=== PATIENT | female | born 1940 | race Caucasian/White ===

== ENCOUNTER 2021-07-03 11:39 | Emergency (ER) | payer MEDICARE ==
[~2021-07-03] VITALS: Ht 165.1 cm; Wt 71.0 kg
[2021-07-03] MEDS ORDERED: ATORVASTATIN CA40 MG PO (12:57)
[2021-07-03] MEDS ORDERED: SERTRALINE50 MG PO (12:58)
[2021-07-03] MEDS ORDERED: LEVOTHYROXIN125 MCG PO (12:58)
[2021-07-03] MEDS ORDERED: NORVASC5 M1 PO (12:59)
[2021-07-03] MEDS ORDERED: ISOSORB MONO30 MG PO (13:01)
[2021-07-03] MEDS ORDERED: METOPROL TAR25 MG PO (13:01)
[2021-07-03 13:20] LABS: HEMATOCRIT 41.1 % (37.0-47.0); HEMOGLOBIN 13.3 g/dl (12.0-16.0); IMMATURE GRANULOCYTES 0.4 % (0.0-5.0); MEAN CELL VOLUME 94.7 fL CALC (80.0-100.0); MEAN CORPUSCULAR HGB 30.6 pG CALC (26.0-32.0); MEAN CORPUSCULAR HGB CONC 32.4 g/dL CAL (32.0-36.0); NEUT# 4.57 thou/uL (2.00-7.15); RED BLOOD COUNT 4.34 mill/uL (4.20-5.60); RED CELL DISTRI WIDTH 12.6 % (11.5-15.5)
[2021-07-03 13:39] LABS: ALBUMIN 3.8 g/dL (3.2-5.0); ALKALINE PHOSPHATASE 187 u/l (38-126); ANION GAP 11 (6-22 (CALC)); BILIRUBIN, TOTAL 0.6 mg/dL (0.0-1.4); BUN 14 mg/dL (8-23); BUN/CREATININE RATIO 15 (12-20 (CALC)); CARBON DIOXIDE 24 mmol/l (22-30); CHLORIDE 105 mmol/l (95-108); GFR 53 ML/MIN (>=60 (CALC)); GFR FOR AFR.AMER. > 60 ML/MIN (>=60 (CALC)); POTASSIUM 3.8 mmol/l (3.5-5.1); SGOT/AST 34 u/l (9-36); SODIUM 136 mmol/l (137-146); TOTAL PROTEIN 8.4 g/dL (6.3-8.2)
[2021-07-03 13:51] LABS: MYOGLOBIN 33 ng/mL (0 - 62)
[2021-07-03 14:10] LABS: TSH, 3RD GENERATION 1.1 uIU/mL (0.47 - 4.68)
[2021-07-03 17:08] LABS: URINE BILIRUBIN - DIPSTICK NEGATIVE (NEGATIVE); URINE BLOOD DIPSTICK TRACE-INTACT (NEGATIVE); URINE COLOR YELLOW; URINE GLUCOSE - DIPSTICK NEGATIVE (NEGATIVE); URINE KETONE NEGATIVE (NEGATIVE); URINE PROTEIN - DIPSTICK NEGATIVE (NEG-TRACE); URINE SPECIFIC GRAVITY 1.015; URINE UROBILINOGEN - DIPSTICK 0.2 E.U./dL (0.2)
[2021-07-03 17:19] LABS: URINE LEUK ESTERASE MODERATE (NEGATIVE); URINE NITRITE - DIPSTICK POSITIVE (Negative)
[2021-07-03 17:32] LABS: URINE SQUAMOUS EPITHELIAL CELL FEW EPI/hpf (0-FEW); URINE WBC 50-100 WBC/hpf (0-5)
[2021-07-03] MEDS ORDERED: KEFLEX500 MG PO (18:18)
[2021-07-03] MEDS ORDERED: BACTRIM DS1 TAB PO (18:18)
[2021-07-03 18:31] VITALS: BP 165/107
[2021-07-03] MEDS ORDERED: ULTRAM50 M1 PO (18:49)
[2021-07-04] MEDS ORDERED: KAPSPARGO SPRIN50 MG PO (17:13)
== END 2021-07-03 19:01 | disposition home or self-care (01) ==
LOC: ED 11:39
PROVIDERS: Emergency Medicine
PROC: 0H9GXZZ Drainage of Left Hand Skin, External Approach (ICD-10-PCS; principal; 2021-07-03)
DX: L02.512 Cutaneous abscess of left hand (principal); L03.116 Cellulitis of left lower limb; I48.91 Unspecified atrial fibrillation; I10 Essential (primary) hypertension; E11.9 Type 2 diabetes mellitus without complications; R82.71 Bacteriuria

== ENCOUNTER 2021-07-04 15:11 | Emergency (ER) | payer MEDICARE ==
[~2021-07-04] VITALS: Ht 165.1 cm; Wt 65.0 kg
[~2021-07-04 15:11] MED LIST: ATORVASTATIN CA40 MG PO; BACTRIM DS1 TAB PO; ISOSORB MONO30 MG PO; KEFLEX500 MG PO; LEVOTHYROXIN125 MCG PO; METOPROL TAR25 MG PO; NORVASC5 M1 PO; SERTRALINE50 MG PO; ULTRAM50 M1 PO
[2021-07-04] MEDS ORDERED: KAPSPARGO SPRIN50 MG PO (17:13)
[2021-07-04 17:45] VITALS: BP 135/77
== END 2021-07-04 17:45 | disposition home or self-care (01) ==
LOC: ED 15:11
DX: Z48.01 Encounter for change or removal of surgical wound dressing (principal); L03.116 Cellulitis of left lower limb; E11.9 Type 2 diabetes mellitus without complications; I10 Essential (primary) hypertension; I48.91 Unspecified atrial fibrillation

== ENCOUNTER 2021-07-06 07:21 | Emergency (ER) | payer MEDICARE ==
[~2021-07-06] VITALS: Ht 165.1 cm; Wt 78.0 kg
[~2021-07-06 07:21] MED LIST changes: +KAPSPARGO SPRIN50 MG PO
[2021-07-06 09:07] VITALS: BP 132/73
== END 2021-07-06 09:07 | disposition home or self-care (01) ==
LOC: ED 07:21
PROC: 0H9GXZZ Drainage of Left Hand Skin, External Approach (ICD-10-PCS; principal; 2021-07-06)
DX: L02.512 Cutaneous abscess of left hand (principal); I48.91 Unspecified atrial fibrillation; I10 Essential (primary) hypertension; E11.9 Type 2 diabetes mellitus without complications

== ENCOUNTER 2021-11-05 17:15 | Emergency (ER) | payer MEDICARE ==
[~2021-11-05] VITALS: Ht 165.1 cm; Wt 66.0 kg
[2021-11-05] VITALS (18 sets, daily range): BP systolic 110–145; BP diastolic 62–88
[2021-11-05 20:10] LABS: HEMATOCRIT 25.8 % (37.0-47.0); HEMOGLOBIN 7.2 g/dl (12.0-16.0); IMMATURE GRANULOCYTES 0.1 % (0.0-5.0); MEAN CELL VOLUME 80.6 fL CALC (80.0-100.0); MEAN CORPUSCULAR HGB 22.5 pG CALC (26.0-32.0); MEAN CORPUSCULAR HGB CONC 27.9 g/dL CAL (32.0-36.0); NEUT# 4.38 thou/uL (2.00-7.15); RED BLOOD COUNT 3.2 mill/uL (4.20-5.60); RED CELL DISTRI WIDTH 15.3 % (11.5-15.5)
[2021-11-05] MEDS ORDERED: TRESIBA100 UNIT/M (20:23)
[2021-11-05 20:26] LABS: ALBUMIN 3.8 g/dL (3.2-5.0); ALKALINE PHOSPHATASE 225 u/l (38-126); BILIRUBIN, TOTAL 0.6 mg/dL (0.0-1.4); BUN 27 mg/dL (8-23); BUN/CREATININE RATIO 24 (12-20 (CALC)); CARBON DIOXIDE 23 mmol/l (22-30); CHLORIDE 94 mmol/l (95-108); CREATININE 1.1 mg/dL (0.5-1.0); GFR FOR AFR.AMER. 57 ML/MIN (>=60 (CALC)); GFR OTHER RACES 47 ML/MIN (>=60 (CALC)); POTASSIUM 4.6 mmol/l (3.5-5.1); SGOT/AST 24 u/l (9-36); TOTAL PROTEIN 6.8 g/dL (6.3-8.2)
[2021-11-05] MEDS ORDERED: NOVOLOG100 UNIT ×2 (20:27)
[2021-11-05 20:31] LABS: ANION GAP 15 (6-22 (CALC)); SODIUM 127 mmol/l (137-146)
[2021-11-05 21:07] LABS: INTERNATIONAL NORMALIZED RATIO 1.1 RATIO (0.7-1.3); PROTHROMBIN TIME 11.3 SECONDS (9.0-12.5)
[2021-11-06 00:01] VITALS: BP 145/67
[2021-11-06 00:15] VITALS: BP 147/82
[2021-11-06 00:31] VITALS: BP 139/79
[2021-11-06 00:41] VITALS: BP 139/79
[2021-11-06 00:45] VITALS: BP 146/85
[2021-11-06 01:17] VITALS: BP 146/85
== END 2021-11-06 01:17 | disposition short-term general hospital (02) ==
LOC: ED 17:15
PROC: 30233N1 Transfusion of Nonautologous Red Blood Cells into Peripheral Vein, Percutaneous Approach (ICD-10-PCS; principal; 2021-11-05)
DX: K92.2 Gastrointestinal hemorrhage, unspecified (principal); D64.9 Anemia, unspecified; I48.91 Unspecified atrial fibrillation; I10 Essential (primary) hypertension; E11.9 Type 2 diabetes mellitus without complications; Z79.4 Long term (current) use of insulin; Z20.822 Contact with and (suspected) exposure to COVID-19; I48.20 Chronic atrial fibrillation, unspecified; I20.8 Other forms of angina pectoris; Z01.818 Encounter for other preprocedural examination
CPT/HCPCS: P9016

== ENCOUNTER 2022-11-10 15:39 | Emergency (ER) | payer MEDICARE ==
[2022-11-10] VITALS (12 sets, daily range): BP systolic 55–142; BP diastolic 38–115
[~2022-11-10] VITALS: Ht 165.1 cm; Wt 70.3 kg
[~2022-11-10 15:39] MED LIST changes: +NOVOLOG100 UNIT; +TRESIBA100 UNIT/M
[2022-11-10] MEDS ORDERED: XANAX1 MG PO (16:14)
[2022-11-10 16:26] LABS: BASO% 0.6 % (0-3); HEMATOCRIT 22.8 % (37.0-47.0); IMMATURE GRANULOCYTES 0.3 % (0.0-5.0); LYMPH% 19.2 % (15-41); MEAN CORPUSCULAR HGB 31.3 pG CALC (26.0-32.0); MEAN CORPUSCULAR HGB CONC 29.8 g/dL CAL (32.0-36.0); MONO% 8.6 % (2-13); NEUT# 5.54 thou/uL (2.00-7.15); NEUT% 70.3 % (42-76); RED BLOOD COUNT 2.17 mill/uL (4.20-5.60); RED CELL DISTRI WIDTH 15.3 % (11.5-15.5)
[2022-11-10 16:27] LABS: INTERNATIONAL NORMALIZED RATIO 1.4 RATIO (0.7-1.3); PROTHROMBIN TIME 13.5 SECONDS (9.0-12.5)
[2022-11-10 16:28] LABS: HEMOGLOBIN 6.8 g/dl (12.0-16.0); MEAN CELL VOLUME 105.1 fL CALC (80.0-100.0)
[2022-11-10 16:30] LABS: ALBUMIN 3.9 g/dL (3.2-5.0); BILIRUBIN, TOTAL 0.8 mg/dL (0.02-1.3); CREATININE 1.1 mg/dL (0.5-1.0); POTASSIUM 5.1 mmol/l (3.5-5.1); TOTAL PROTEIN 6.6 g/dL (6.3-8.2)
== END 2022-11-10 18:05 | disposition short-term general hospital (02) ==
LOC: ED 15:39
PROVIDERS: Family Medicine
PROC: 30233N1 Transfusion of Nonautologous Red Blood Cells into Peripheral Vein, Percutaneous Approach (ICD-10-PCS; principal; 2022-11-10)
DX: K92.1 Melena (principal); I10 Essential (primary) hypertension; E11.9 Type 2 diabetes mellitus without complications; I48.91 Unspecified atrial fibrillation; E89.0 Postprocedural hypothyroidism; Z79.84 Long term (current) use of oral hypoglycemic drugs; Z79.01 Long term (current) use of anticoagulants; Z79.82 Long term (current) use of aspirin; Z87.19 Personal history of other diseases of the digestive system
CPT/HCPCS: P9016; S0164

== ENCOUNTER 2024-05-05 11:08 | Inpatient (IN) | payer MEDICARE ==
[2024-05-05] VITALS (33 sets, daily range): BP systolic 57–162; BP diastolic 30–121
[~2024-05-05] VITALS: Ht 165.1 cm; Wt 71.0 kg
[~2024-05-05 11:08] MED LIST changes: -LEVOTHYROXIN125 MCG PO; +LEVOTHYROXIN137 MCG PO; +NOVOLOG100 UNIT SC; +XANAX1 MG PO
[2024-05-05] MEDS ORDERED: cefTRIAXone SODIUM 2 GM in SODIUM CHLORIDE 0.9% 100 ML IV ONE (11:30)
[2024-05-05] MEDS ORDERED: SODIUM CHLORIDE 0.9% 1,000 ML IV ONE ×4 (11:30→14:20)
[2024-05-05] MEDS ORDERED: DILTIAZEM HCL 125 MG in SODIUM CHLORIDE 0.9% 100 ML IV ONE (11:50)
[2024-05-05] MEDS ORDERED: SODIUM CHLORIDE 0.9% 250 ML IV PRN (11:50)
[2024-05-05] MEDS ORDERED: dilTIAZem HCL 50 MG/10 ML SDV IV ONE (11:50)
[2024-05-05 12:19] LABS: MAGNESIUM 2.3 mg/dL (1.6-2.3); TOTAL PROTEIN 7.4 g/dL (6.3-8.2)
[2024-05-05 12:21] LABS: BASO% 0.1 % (0-3); HEMATOCRIT 46.6 % (37.0-47.0); HEMOGLOBIN 14.9 g/dl (12.0-16.0); IMMATURE GRANULOCYTES 0.5 % (0.0-5.0); LYMPH% 12.6 % (15-41); MEAN CELL VOLUME 99.1 fL CALC (80.0-100.0); MEAN CORPUSCULAR HGB 31.7 pG CALC (26.0-32.0); MONO% 9.7 % (2-13); NEUT# 8.07 thou/uL (2.00-7.15); NEUT% 77.1 % (42-76); RED BLOOD COUNT 4.7 mill/uL (4.20-5.60); RED CELL DISTRI WIDTH 13.6 % (11.5-15.5)
[2024-05-05 12:50] LABS: URINE BLOOD DIPSTICK Small (NEGATIVE); URINE GLUCOSE - DIPSTICK 500 mg/dL (NEGATIVE); URINE KETONE 40 mg/dL (NEGATIVE); URINE NITRITE - DIPSTICK Negative (Negative); URINE PROTEIN - DIPSTICK 30 mg/dL (NEG-TRACE); URINE SPECIFIC GRAVITY 1.015; URINE UROBILINOGEN - DIPSTICK 0.2 E.U./dL (0.2)
[2024-05-05 13:08] LABS: ALBUMIN 4.9 g/dL (3.2-5.0); BILIRUBIN, TOTAL 1.2 mg/dL (0.02-1.3); CREATININE 2.5 mg/dL (0.5-1.0); POTASSIUM 5.3 mmol/l (3.5-5.1)
[2024-05-05] MEDS ORDERED: INSULIN REGULAR (HUMAN) 100 UNIT/ML INJ IV ONE (13:10)
[2024-05-05 13:15] LABS: URINE COLOR Yellow; URINE LEUK ESTERASE Small (NEGATIVE)
[2024-05-05] MEDS ORDERED: INSULIN REGULAR (HUMAN) IN SOD 100 ML IV ONE (13:15)
[2024-05-05] MEDS ORDERED: ACETAMINOPHEN 1,000 MG/100 ML VIAL IV ONE (13:15)
[2024-05-05 13:17] LABS: URINE WBC 20-50 WBC/hpf (0-5)
[2024-05-05 13:19] LABS: URINE BACTERIA MODERATE hpf; URINE YEAST MODERATE hpf
[2024-05-05 15:03] LABS: CREATININE 2.4 mg/dL (0.5-1.0)
[2024-05-05 15:13] LABS: POTASSIUM 4.2 mmol/l (3.5-5.1)
[2024-05-05] MEDS ORDERED: DEXTROSE 5% w/NACL 0.45 1,000 ML IV PRN (16:30)
[2024-05-05] MEDS ORDERED: SODIUM CHLORIDE 0.45% 1,000 ML IV PRN (16:30)
[2024-05-05] MEDS ORDERED: POTASSIUM CHLORIDE IN NACL 1,000 ML IV PRN (16:30)
[2024-05-05] MEDS ORDERED: SODIUM CHLORIDE 0.9% 1,000 ML IV PRN (16:30)
[2024-05-05] MEDS ORDERED: POTASSIUM CHLORIDE 20MEQ 100 ML IV PRN (16:30)
[2024-05-05] MEDS ORDERED: INSULIN REGULAR (HUMAN) IN SOD 100 ML IV PRN (16:30)
[2024-05-05] MEDS ORDERED: D5 1/2 NaCL W/KCL 20MEQ 1,000 ML IV PRN (17:00)
[2024-05-05] MEDS ORDERED: PIPERACILLIN Sodium-Tazobactam 3.375 GM in SODIUM CHLORIDE 0.9% 100 ML IV SCH (18:00)
[2024-05-05 19:02] LABS: ALBUMIN 4.1 g/dL (3.2-5.0); POTASSIUM 3.7 mmol/l (3.5-5.1); TOTAL PROTEIN 6.7 g/dL (6.3-8.2)
[2024-05-05 19:04] LABS: BILIRUBIN, TOTAL 0.5 mg/dL (0.02-1.3)
[2024-05-05] MEDS ORDERED: dilTIAZem HCL 50 MG/10 ML SDV IV PRN ×2 (20:15)
[2024-05-05] MEDS ORDERED: DILTIAZEM HCL 125 MG in SODIUM CHLORIDE 0.9% 100 ML IV PRN (20:15)
[2024-05-05 20:59] LABS: CREATININE 1.8 mg/dL (0.5-1.0); POTASSIUM 3.5 mmol/l (3.5-5.1)
[2024-05-06] VITALS (22 sets, daily range): BP systolic 89–247; BP diastolic 43–205
[2024-05-06 01:13] LABS: CREATININE 1.6 mg/dL (0.5-1.0); POTASSIUM 3.4 mmol/l (3.5-5.1)
[2024-05-06] MEDS ORDERED: TRAMADOL HYDROC50 M1 PO (03:31)
[2024-05-06] MEDS ORDERED: ASPIRIN ENTERIC81 MG PO (03:35)
[2024-05-06] MEDS ORDERED: DULOXETINE HCL30 MG PO (03:37)
[2024-05-06] MEDS ORDERED: B12 FAST DIS5000 MCG SL (03:38)
[2024-05-06] MEDS ORDERED: PROTONIX40 M2 PO (03:39)
[2024-05-06] MEDS ORDERED: OXYBUTYNIN CHLOR5 M1 PO (03:40)
[2024-05-06] MEDS ORDERED: TOPROL XL100 MG PO (03:44)
[2024-05-06] MEDS ORDERED: ACETAMINOPHEN 325 MG/TAB PO PRN (04:40)
[2024-05-06 05:20] LABS: HEMATOCRIT 43.1 % (37.0-47.0); HEMOGLOBIN 13.7 g/dl (12.0-16.0); MEAN CELL VOLUME 99.3 fL CALC (80.0-100.0); MEAN CORPUSCULAR HGB 31.6 pG CALC (26.0-32.0); MEAN CORPUSCULAR HGB CONC 31.8 g/dL CAL (32.0-36.0); RED BLOOD COUNT 4.34 mill/uL (4.20-5.60); RED CELL DISTRI WIDTH 14.1 % (11.5-15.5)
[2024-05-06 05:36] LABS: ALBUMIN 3.8 g/dL (3.2-5.0); CREATININE 1.5 mg/dL (0.5-1.0); MAGNESIUM 1.9 mg/dL (1.6-2.3); POTASSIUM 3.4 mmol/l (3.5-5.1); TOTAL PROTEIN 6.7 g/dL (6.3-8.2)
[2024-05-06 05:57] LABS: BILIRUBIN, TOTAL 0.8 mg/dL (0.02-1.3)
[2024-05-06] MEDS ORDERED: DEXTROSE 250 ML IV PRN ×2 (08:15)
[2024-05-06] MEDS ORDERED: INSULIN GLARGINE 100 UNITS/ML SC SCH (09:00)
[2024-05-06] MEDS ORDERED: ASPIRIN EC 81 MG/TAB PO SCH (09:00)
[2024-05-06] MEDS ORDERED: METOPROLOL SUCCINATE 100 MG/TAB PO SCH ×2 (09:00→09:30)
[2024-05-06] MEDS ORDERED: PANTOPRAZOLE SODIUM Sesquihydr 40 MG/TAB PO SCH (09:00)
[2024-05-06] MEDS ORDERED: ATORVASTATIN CALCIUM 40 MG/TAB PO SCH ×2 (09:00→09:30)
[2024-05-06] MEDS ORDERED: NYSTATIN 1500 MU/BTL TOP SCH (10:00)
[2024-05-06] MEDS ORDERED: INSULIN LISPRO 100 UNITS/ML ML SC SCH (11:00)
[2024-05-06] MEDS ORDERED: cefTRIAXone SODIUM 2 GM in SODIUM CHLORIDE 0.9% 100 ML IV SCH (12:00)
[2024-05-06] MEDS ORDERED: SODIUM CHLORIDE 0.9% 1,000 ML IV PRN (12:50)
[2024-05-06] MEDS ORDERED: TRAZODONE50 MG PO (13:12)
[2024-05-07] VITALS (11 sets, daily range): BP systolic 103–142; BP diastolic 64–93
[2024-05-07 05:31] LABS: HEMATOCRIT 48.1 % (37.0-47.0); HEMOGLOBIN 15.5 g/dl (12.0-16.0); MEAN CELL VOLUME 98.8 fL CALC (80.0-100.0); MEAN CORPUSCULAR HGB 31.8 pG CALC (26.0-32.0); MEAN CORPUSCULAR HGB CONC 32.2 g/dL CAL (32.0-36.0); RED BLOOD COUNT 4.87 mill/uL (4.20-5.60); RED CELL DISTRI WIDTH 14.7 % (11.5-15.5)
[2024-05-07 05:51] LABS: ALBUMIN 3.6 g/dL (3.2-5.0); BILIRUBIN, TOTAL 0.8 mg/dL (0.02-1.3); CREATININE 1.3 mg/dL (0.5-1.0); POTASSIUM 3.5 mmol/l (3.5-5.1); TOTAL PROTEIN 6.6 g/dL (6.3-8.2)
[2024-05-08] VITALS (8 sets, daily range): BP systolic 116–162; BP diastolic 78–98
[2024-05-08 05:16] LABS: HEMATOCRIT 43.1 % (37.0-47.0); HEMOGLOBIN 14.2 g/dl (12.0-16.0); MEAN CELL VOLUME 96.2 fL CALC (80.0-100.0); MEAN CORPUSCULAR HGB 31.7 pG CALC (26.0-32.0); MEAN CORPUSCULAR HGB CONC 32.9 g/dL CAL (32.0-36.0); RED BLOOD COUNT 4.48 mill/uL (4.20-5.60); RED CELL DISTRI WIDTH 14.2 % (11.5-15.5)
[2024-05-08 05:40] LABS: BILIRUBIN, TOTAL 0.9 mg/dL (0.02-1.3); CREATININE 0.9 mg/dL (0.5-1.0); MAGNESIUM 1.5 mg/dL (1.6-2.3); POTASSIUM 3.4 mmol/l (3.5-5.1); TOTAL PROTEIN 5.8 g/dL (6.3-8.2)
[2024-05-08] MEDS ORDERED: INSULIN GLARGINE 100 UNITS/ML SC SCH (09:30)
[2024-05-08] MEDS ORDERED: FUROSEMIDE 40 MG/4 ML SDV IV SCH (10:00)
[2024-05-08] MEDS ORDERED: dilTIAZem HCl EXTENDED RELEASE 120 MG CAP PO SCH (10:00)
[2024-05-08] MEDS ORDERED: ONDANSETRON HCl 4 MG/2 ML SDV IV PRN (17:20)
[2024-05-09] VITALS (7 sets, daily range): BP systolic 106–152; BP diastolic 66–112
[2024-05-09 10:52] LABS: BASO% 0.2 % (0-3); EOS% 1.2 % (0-8); HEMATOCRIT 47.5 % (37.0-47.0); HEMOGLOBIN 15.7 g/dl (12.0-16.0); IMMATURE GRANULOCYTES 0.6 % (0.0-5.0); LYMPH% 25.8 % (15-41); MEAN CELL VOLUME 94.8 fL CALC (80.0-100.0); MEAN CORPUSCULAR HGB 31.3 pG CALC (26.0-32.0); MEAN CORPUSCULAR HGB CONC 33.1 g/dL CAL (32.0-36.0); MONO% 9.9 % (2-13); NEUT# 3.02 thou/uL (2.00-7.15); NEUT% 62.3 % (42-76); RED BLOOD COUNT 5.01 mill/uL (4.20-5.60); RED CELL DISTRI WIDTH 13.7 % (11.5-15.5)
[2024-05-09 11:07] LABS: ALBUMIN 3.5 g/dL (3.2-5.0); BILIRUBIN, TOTAL 0.9 mg/dL (0.02-1.3); CREATININE 1.2 mg/dL (0.5-1.0); POTASSIUM 3.1 mmol/l (3.5-5.1); TOTAL PROTEIN 6.3 g/dL (6.3-8.2)
[2024-05-09] MEDS ORDERED: MAGNESIUM SULFATE HEPTAHYDRATE 50 ML IV SCH (18:00)
[2024-05-09] MEDS ORDERED: POTASSIUM CHLORIDE 20 MEQ/TAB PO SCH (18:00)
[2024-05-10] VITALS: BP 134/77
[2024-05-10 05:36] VITALS: BP 128/81
[2024-05-10 06:00] LABS: BASO% 0.4 % (0-3); EOS% 2.5 % (0-8); HEMATOCRIT 47.5 % (37.0-47.0); HEMOGLOBIN 15.7 g/dl (12.0-16.0); IMMATURE GRANULOCYTES 0.5 % (0.0-5.0); LYMPH% 29.5 % (15-41); MEAN CELL VOLUME 96.3 fL CALC (80.0-100.0); MEAN CORPUSCULAR HGB 31.8 pG CALC (26.0-32.0); MEAN CORPUSCULAR HGB CONC 33.1 g/dL CAL (32.0-36.0); MONO% 12.6 % (2-13); NEUT# 3.02 thou/uL (2.00-7.15); NEUT% 54.5 % (42-76); RED BLOOD COUNT 4.93 mill/uL (4.20-5.60); RED CELL DISTRI WIDTH 13.8 % (11.5-15.5)
[2024-05-10 06:03] LABS: ALBUMIN 3.2 g/dL (3.2-5.0); BILIRUBIN, TOTAL 0.8 mg/dL (0.02-1.3); CREATININE 1.1 mg/dL (0.5-1.0); POTASSIUM 3.4 mmol/l (3.5-5.1); TOTAL PROTEIN 5.9 g/dL (6.3-8.2)
[2024-05-10 06:12] LABS: MAGNESIUM 2.1 mg/dL (1.6-2.3)
[2024-05-10 08:00] VITALS: BP 142/65
[2024-05-10] MEDS ORDERED: POTASSIUM CHLORIDE 20 MEQ/TAB PO SCH (08:00)
[2024-05-10 08:36] VITALS: BP 130/79
[2024-05-10 09:03] VITALS: BP 142/65
[2024-05-10 12:00] VITALS: BP 142/65
[2024-05-10] MEDS ORDERED: CARDIZEM CD120 MG PO (12:25)
[2024-05-10] MEDS ORDERED: OMNICEF300 MG PO (12:26)
[2024-05-10] MEDS ORDERED: ZOFRAN4 MG/TAB PO (13:59)
== END 2024-05-10 14:03 | disposition home health service (06) | DRG 871 ==
LOC: ED 11:08 → ED-I 15:06 → ED 15:34 → ED-I 15:35 → ICU 15:35
PROVIDERS: Family Medicine; Internal Medicine; ADMIT Internal Medicine; ATTEND Internal Medicine
PROC: 0T9B70Z Drainage of Bladder with Drainage Device, Via Natural or Artificial Opening (ICD-10-PCS; principal; 2024-05-05)
DX: A41.9 Sepsis, unspecified organism (principal); E10.10 Type 1 diabetes mellitus with ketoacidosis without coma; G93.41 Metabolic encephalopathy; N39.0 Urinary tract infection, site not specified; N17.9 Acute kidney failure, unspecified; R65.20 Severe sepsis without septic shock; B96.20 Unspecified Escherichia coli [E. coli] as the cause of diseases classified elsewhere; I48.91 Unspecified atrial fibrillation; I10 Essential (primary) hypertension; E86.0 Dehydration; E89.0 Postprocedural hypothyroidism; E78.5 Hyperlipidemia, unspecified; D69.1 Qualitative platelet defects; H91.90 Unspecified hearing loss, unspecified ear; Z79.4 Long term (current) use of insulin; Z20.822 Contact with and (suspected) exposure to COVID-19; Z95.818 Presence of other cardiac implants and grafts; Z96.41 Presence of insulin pump (external) (internal)
CPT/HCPCS: J0131; J0696; J1815; J1940; J2405; J3475